=== PATIENT | female | born 1980 | race Two or more races ===

== ENCOUNTER 2023-06-21 17:58 | Emergency (ER) | payer OTHER ==
[~2023-06-21] VITALS: Ht 152.4 cm; Wt 49.9 kg
[2023-06-21] MEDS ORDERED: KEPPRA500 MG PO (18:15)
[2023-06-21] MEDS ORDERED: 0.9 % SODIUM CHLORIDE 1,000 ML IV STA (18:20)
[2023-06-21] MEDS ORDERED: LORazepam 2 MG/ML VIAL IM ONE (18:30)
[2023-06-21 18:35] LABS: HEMATOCRIT 38.3 % (36.0-45.00); HEMOGLOBIN 12.3 g/dL (12.0-15.00); MEAN CELL VOLUME 73.5 fL (80.00-100.00); MEAN CORPUSCULAR HEMOGLOBIN 23.7 pg (27.00-32.0); MEAN CORPUSCULAR HGB CONC 32.2 g/dl (32.0-36.0); PLATELET COUNT 274 K/uL (150-450); RED BLOOD COUNT 5.21 M/uL (4.00-6.00); RED CELL DISTRIBUTION WIDTH 19.1 % (11.5-14.5)
[2023-06-21 18:58] LABS: CALCIUM 9.1 mg/dL (8.5-10.1); CREATININE SERUM 0.53 mg/dL (0.55-1.02); GFR 125.9; POTASSIUM 4.16 mEq/L (3.5-5.1)
[2023-06-21] MEDS ORDERED: MANNITOL 0.2 GM/ML (250ML) PIGGYBAG IV ONE (19:30)
[2023-06-21] MEDS ORDERED: SODIUM CHLORIDE 3% 1,000 ML IV SCH (19:45)
[2023-06-21 20:44] LABS: ALBUMIN 3.8 gm/dL (3.4-5.0); BILIRUBIN TOTAL 0.35 mg/dL (0.3-1.2); CALCIUM 8.9 mg/dL (8.5-10.1); CREATININE SERUM 0.47 mg/dL (0.55-1.02); GFR 144.63; GLOBULINA 3.8 G/DL (2.4-3.5); POTASSIUM 4.15 mEq/L (3.5-5.1); TOTAL PROTEIN 7.6 gm/dL (6.4-8.2)
[2023-06-21 20:52] LABS: INR 1.09; PARTIAL THROMBOPLASTIN TIME 27.6 SECONDS (22.0-34.0); PROTHROMBIN TIME 11.4 SECONDS (9.0-11.5)
[2023-06-21 22:03] LABS: URINE APPEARANCE Clear; URINE BILIRRUBIN Negative (NEGATIVE); URINE BLOOD Moderate; URINE COLOR Yellow; URINE GLUCOSE Negative (NEGATIVE); URINE LEUKOCYTE Trace; URINE NITRATE Negative; URINE PROTEIN Negative (NEGATIVE)
[2023-06-21 22:07] LABS: URINE BACTERIA 3366.6 uL (0.0-1933); URINE EPITHELIAL CELLS 44.2 uL (0.0-38.8); URINE WBC 60.4 uL (0.0-23.2)
== END 2023-06-21 21:45 | disposition designated cancer center or children's hospital (05) ==
LOC: ER 17:58
PROVIDERS: Emergency Medicine
DX: D49.6 Neoplasm of unspecified behavior of brain (principal); R56.9 Unspecified convulsions; Z91.013 Allergy to seafood

== ENCOUNTER 2023-07-04 01:46 | Emergency (ER) | payer OTHER ==
[~2023-07-04] VITALS: Ht 152.4 cm; Wt 40.8 kg
[~2023-07-04 01:46] MED LIST: KEPPRA500 MG PO; PERCOGESIC EXT1 EACH PO; ZOFRAN8 MG PO
[2023-07-04] MEDS ORDERED: TRAMADOL HCL E100 MG PO (02:05)
[2023-07-04] MEDS ORDERED: DEXAMETHASONE4 MG PO (02:06)
[2023-07-04] MEDS ORDERED: PEPCID AC20 MG PO (02:06)
[2023-07-04] MEDS ORDERED: FENTANYL1 EAC3 TD (02:07)
[2023-07-04] MEDS ORDERED: RINGERS SOLUTION,LACTATED 1,000 ML IV STA (02:42)
[2023-07-04] MEDS ORDERED: DEXAMETHASONE SODIUM PHOSPHATE 4 MG/ML VIAL IV STA (02:43)
[2023-07-04] MEDS ORDERED: FAMOtidine 10 MG/ML (4ML VIAL) IV PUSH STA (02:44)
[2023-07-04] MEDS ORDERED: LevETIRAcetam 500 MG/5 ML VIAL IV STA (02:45)
[2023-07-04] MEDS ORDERED: ONDANSETRON HCL 2 MG/ML VIAL IV STA (03:02)
[2023-07-04 03:28] LABS: HEMATOCRIT 41.8 % (36.0-45.00); HEMOGLOBIN 13.4 g/dL (12.0-15.00); MEAN CORPUSCULAR HEMOGLOBIN 23.7 pg (27.00-32.0); PLATELET COUNT 251 K/uL (150-450); RED BLOOD COUNT 5.65 M/uL (4.00-6.00); RED CELL DISTRIBUTION WIDTH 19.6 % (11.5-14.5)
[2023-07-04 03:37] LABS: INR 1.14; PARTIAL THROMBOPLASTIN TIME 24.9 SECONDS (22.0-34.0); PROTHROMBIN TIME 11.9 SECONDS (9.0-11.5)
[2023-07-04 03:41] LABS: BILIRUBIN TOTAL 0.73 mg/dL (0.3-1.2); CALCIUM 9.4 mg/dL (8.5-10.1); CREATININE SERUM 0.62 mg/dL (0.55-1.02); GFR 105.06; GLOBULINA 3.7 G/DL (2.4-3.5); POTASSIUM 3.52 mEq/L (3.5-5.1); TOTAL PROTEIN 7.7 gm/dL (6.4-8.2)
[2023-07-04] MEDS ORDERED: ONDANSETRON HCL 2 MG/ML VIAL IV PRN (07:15)
[2023-07-04] MEDS ORDERED: DEXAMETHASONE SODIUM PHOSPHATE 4 MG/ML VIAL IV SCH (09:00)
[2023-07-04] MEDS ORDERED: LevETIRAcetam 500 MG/5 ML VIAL IV SCH (09:00)
[2023-07-04] MEDS ORDERED: FAMOTIDINE/PF 20 MG in 0.9 % SODIUM CHLORIDE 8 ML IV PUSH SCH (09:00)
[2023-07-05] MEDS ORDERED: 0.9 % SODIUM CHLORIDE 1,000 ML IV SCH (19:15)
[2023-07-05] MEDS ORDERED: ACETAMINOPHEN 500 MG GEL..CAP PO PRN (19:30)
[2023-07-05] MEDS ORDERED: ONDANSETRON HCL 4 MG in 0.9 % SODIUM CHLORIDE 50 ML IV PRN (19:30)
[2023-07-05] MEDS ORDERED: TRAMADOL HCL 50 MG TABLET PO PRN (19:30)
[2023-07-05 21:09] LABS: MAGNESIUM 1.8 mg/dL (1.8-2.4); PHOSPHOROUS 3.1 mg/dL (2.5-4.9)
[2023-07-05 21:10] LABS: ABG PH 7.432 (7.35-7.45); ABG pCO2 38.4 mmHg (35-45); BICARBONATE 25.1 mmol/l (23-25); SaO2 96.4 %; Tco2 26.3 mmol/l
[2023-07-05 21:11] LABS: allen test SATISFACTORY; o2 21 %; puncture site RADIAL RIGHT
[2023-07-06] MEDS ORDERED: DEXAMETHASONE SODIUM PHOSPHATE 4 MG/ML VIAL IV SCH (05:00)
[2023-07-06] MEDS ORDERED: CEFTRIAXONE SODIUM 2,000 MG in 0.9 % SODIUM CHLORIDE 100 ML IV SCH (09:00)
== END 2023-07-05 23:36 | disposition left against medical advice (07) ==
LOC: ER 01:46 → MEDI 07-05 20:30 → ER 07-05 23:36 → MEDI 07-05 23:36
PROVIDERS: General Practice
DX: G93.5 Compression of brain (principal); Z20.822 Contact with and (suspected) exposure to COVID-19; Z66 Do not resuscitate; Z53.29 Procedure and treatment not carried out because of patient's decision for other reasons; Z91.013 Allergy to seafood; R56.9 Unspecified convulsions